=== PATIENT | male | born 1940 | race Caucasian/White ===

== ENCOUNTER → 2017-09-02 | Day surgery (SDC) | payer BC ==
[~2017-09-02] MED LIST: ACETAMINOPHEN 1000 MG/100 ML 100 ML IV ONE; BUPIVACAINE/EPINEPHRINE 0.25% 50 ML VIAL ONE; KETOROLAC TROMETHAMINE 30 MG/ML (IVP) VIAL IV PUSH ONE; LACTATED RINGER'S 1000 ML INJ 1,000 ML ONE; LIDOCAINE 1%/EPINEPHrine 1:100,000 SOLN 30 ML VIAL ONE; MIDAZOLAM HCL 2 MG/2 ML VIAL ONE; ONDANSETRON HCL 4 MG/2 ML VIAL IV PUSH ONE; PROPOFOL 200 MG/20 ML AMP IV ONE; ceFAZolin 2 GM PREMIX 50 ML ONE
--- NOTE | 2017-09-02 09:04 | TN ---
cc: ADONAY ARMENDARIZ M.D. DATE OF SURGERY 09/02/2017 PREOPERATIVE DIAGNOSIS Umbilical hernia, incarcerated. POSTOPERATIVE DIAGNOSIS Umbilical hernia, incarcerated. PROCEDURE Reduction and repair of umbilical hernia measuring 1 cm. ANESTHESIA [place]IV[place]. SURGEON Dr. Armendariz. INDICATIONS This is a 76-year-old gentleman who has an umbilical hernia. Plans were made for above. DETAILS OF PROCEDURE The patient was taken to the operating room and placed in the supine position. After anesthesia his abdomen was prepped with Betadine, preoperative antibiotics given and a timeout is done. We make a curvilinear incision underlying the umbilicus after anesthetizing with a Marcaine solution. We dissect circumferentially around the incarcerated hernia. We are able to get into the sac and the hernia sac is somewhat bruised and strangulated; this is removed. The omentum is reduced. Some of it that is incarcerated in the sac is left and cauterized and removed. Bleeding is stopped with the electrocautery device. We then dissect circumferentially around the defect to normal-appearing tissue. The defect measures just under a centimeter. We then are able to reapproximate the defect in a horizontal fashion using interrupted 0 Ethibond sutures. These are placed and secured and then the umbilicus is secured to the fascia. We close the superficial layer with 4-0 Vicryl. Steri-Strips are applied, sterile bandage applied. The patient tolerated the procedure well and had no immediate post-op complications. MD GANESH Easley/DONI /8:47 AM /8:54 AM
== END | disposition home or self-care (01) ==
LOC: ESDC 06:33
PROVIDERS: ATTEND Surgery
DX: K42.0 Umbilical hernia with obstruction, without gangrene (principal)
CPT/HCPCS: 00750; 49585; 88302; J0131; J0690; J1885; J2250; J2405; J3010; J7120